=== PATIENT | female | born 1950 | race Caucasian/White ===

== ENCOUNTER 2024-04-02 12:11 | Outpatient (REF) | payer MEDICAID, SELFPAY ==
[2024-04-02 13:07] LABS: MANUAL DIFF FLAG NO
[2024-04-02 13:30] LABS: Basophils Absolute Auto 0.1 X10*3/uL (0.0-0.2); Basophils Percent Auto 0.5 % (0-2); Eosinophils Absolute Auto 0.4 X10*3/uL (0.0-0.4); Hemoglobin 14.6 g/dl (12.0-16.0); Imm Gran Abs Auto 0.03 X10*3/uL (0.00-0.03); Imm Gran Pct Auto 0.3 % (0.0-0.4); Mean Corpuscular HGB Conc 33.2 g/dl (31.0-35.0); Mean Corpuscular Hemoglobin 28.4 pg (27.0-33.0); Mean Corpuscular Volume 85.6 fL (80.0-98.0); Mean Platelet Volume 10.6 fL (9.4-12.3); Monocytes Absolute Auto 0.7 X10*3/uL (0.1-1.2); Monocytes Percent Auto 7.3 % (2-11); Neutrophils Absolute Auto 5.8 x10*3/uL (2.0-8.3); Neutrophils Percent Auto 57.9 % (45-73); Platelet Count 344 X10*3/uL (160-400); Red Blood Count 5.14 X10*6/uL (4.20-5.50); Red Cell Distribution Width 12.8 % (11.0-16.0); White Blood Count 9.9 X10*3/uL (4.8-10.8)
[2024-04-02 14:05] LABS: Alanine Aminotransferase 26 U/L (0-31); Albumin Level 3.9 g/dL (3.5-5.0); Alkaline Phosphatase 103 U/L (39-117); Anion Gap 12 (12-20); Aspartate Amino Transferase 19 U/L (5-31); Bilirubin Total 0.6 mg/dL (0.0-1.0); Blood Urea Nitrogen 14 mg/dL (9-16); Calcium 10.3 mg/dL (8.4-10.2); Carbon Dioxide 25 mmol/L (22-29); Chloride 105 mmol/L (96-108); Cholesterol 200 mg/dL (<200); Estimated Glomerular Filt Rate 56; Glucose Random 275 mg/dL (60-115); HDL Cholesterol 40 mg/dL (>40); LDL Cholesterol Calculated 99 mg/dL (<100); Potassium 3.7 mmol/L (3.3-5.1); Sodium 138 mmol/L (135-145); Total Protein 7.6 g/dL (6.5-8.0); Triglycerides 309 mg/dL (<150)
[2024-04-02 14:21] LABS: TSH reflex Free T4 3.23 uIU/mL (0.32-4.0)
== END 2024-04-02 12:12 | disposition home or self-care (01) ==
LOC: HO.HHCL 12:11
PROVIDERS: Visit Provider Nurse Practitioner Family
DX: I10 Essential (primary) hypertension (principal); E11.9 Type 2 diabetes mellitus without complications; E03.9 Hypothyroidism, unspecified
CPT/HCPCS: 36415; 80053; 80061; 84443; 85025

== ENCOUNTER 2024-06-19 09:42 | Outpatient (REF) | payer MEDICAID, SELFPAY ==
--- NOTE | ~2024-06-19 | XR_ITS ---
EXAMINATION: XR HIP, RIGHT CLINICAL INFORMATION: Pain suspect osteoarthritis COMPARISON: Pelvis radiograph from 03/25/2018 TECHNIQUE: Two views of the right hip. FINDINGS: No acute visible fracture or dislocation. Degenerative arthropathy of the right femoral acetabular joint. Joint space alignment otherwise maintained. Soft tissues are unremarkable. XR/XR hip RT min 2V IMPRESSION: 1. No acute visible fracture or dislocation. 2. Degenerative arthropathy of the right femoral acetabular joint. Electronically signed by: Josephine Cuevas MD 06/19/2024 01:06 PM [facility]
== END 2024-06-19 09:43 | disposition home or self-care (01) ==
LOC: HO.HHCX 09:42
PROVIDERS: Visit Provider Nurse Practitioner Family
DX: M25.551 Pain in right hip (principal)
CPT/HCPCS: 73502